=== PATIENT | female | born 1980 | race Caucasian/White ===

== ENCOUNTER 2019-09-01 05:38 | Day surgery (SDC) | payer BC ==
[2019-08-24 16:07] VITALS: BMI 36.1
--- NOTE | 2019-08-31 08:15 | HP ---
REASON FOR ADMISSION: Menorrhagia, dysmenorrhea, adenomyosis, and fibroids. SCHEDULED PROCEDURE: Total laparoscopic hysterectomy, bilateral salpingectomy. HISTORY OF PRESENT ILLNESS: Ms. Dennis is a 39-year-old 1, para 1, status post x1, a long history of dysmenorrhea and menorrhagia. It has been unresponsive to medical management and due to cervical stenosis, we were unable to place IUD in the office. The patient desires definitive surgical management with laparoscopic hysterectomy. 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 Negative Pap in 04/2018. Endometrial biopsy in 2017 was negative. Last ultrasound revealed the uterus measuring about 8 weeks' size with findings consistent with adenomyosis and possible small fibroids. The patient has had 1 previous with 1 living child. The patient has a history of genital herpes outbreaks on occasion. PAST MEDICAL HISTORY: Significant for anxiety, asthma, and depression. PAST SURGICAL HISTORY: , laparoscopies x4. ALLERGIES: DENIES. MEDICATIONS: 1. Indomethacin. 2. Lysteda. 3. Valtrex. SOCIAL HISTORY: Denies tobacco, alcohol, or IV drug abuse. FAMILY HISTORY: Noncontributory. REVIEW OF SYSTEMS: Noncontributory. PHYSICAL EXAMINATION: GENERAL: White female. VITAL SIGNS: 5 feet tall, 175 pounds, BMI 35. Blood pressure 110/62, pulse 95, and respirations 18. HEENT: Within normal limits on auscultation bilaterally. HEART: Regular rate and rhythm. BREASTS: No masses bilaterally. ABDOMEN: Soft, nontender. No rebound or guarding. : Vulva without lesions. Vagina without discharge. Cervix, nulliparous. Uterus, anteverted, 8 weeks' size, tender. Adnexa, no masses. EXTREMITIES: Without clubbing, cyanosis, or edema. IMPRESSION: Long history of menorrhagia and dysmenorrhea with suspected adenomyosis and small fibroids, previous x1. PLAN: Proceed with total laparoscopic hysterectomy, bilateral salpingectomy. The patient understands risks and benefits of procedure including bleeding, infection, and injury to bowel or bladder. We will administer appropriate antibiotic and DVT prophylaxis. Job ID: [id number]
[2019-09-01] MEDS ORDERED: Famotidine/PF 20 mg/2ml Vial ONE (05:52)
[2019-09-01] MEDS ORDERED: CeleCOXIB 100 MG CAP ONE (05:52)
[2019-09-01] MEDS ORDERED: Gabapentin 300 MG CAP ONE (05:52)
[2019-09-01 06:13] LABS: #Basophils 0.1 thou/uL (0.0-0.2); #Eosinphils 0.2 thou/uL (0.0-0.7); #Lymphocytes 3.2 thou/uL (1.20-3.40); #Monocytes 0.7 thou/uL (0.11-0.59); #Neutrophils 5.3 thou/uL (1.40-6.50); %Basophils 1.1 % (0.0-1.0); %Eosinophils 1.9 % (0.0-10.0); %Lymphocytes 33.6 % (21.0-51.0); %Monocytes 7.1 % (0.0-10.0); %Neutrophils 56.3 % (42.0-75.0); Mean Corpuscular HGB CONC 34.2 g/dL (32.0-36.0); Mean Corpuscular Hemoglobin 28.7 pg (27.0-31.0); Mean Corpuscular Volume 83.9 fL (78.0-98.0); Mean Platelet Volume 8.1 fL (7.4-10.4); Platelet Count 250 thou/uL (130-400); RBC Distribution Width 11.8 % (11.5-14.5); Red Blood Cell (RBC) Count 4.52 mill/uL (4.20-5.40); White Blood Cell (WBC) Count 9.5 thou/uL (4.8-10.8)
[2019-09-01] MEDS ORDERED: Fentanyl 100 MCG/2 ML VIAL ONE ×2 (06:23→09:52)
[2019-09-01 06:45] LABS: BHCG - Serum Negative (NEGATIVE); Pregs Control Background? CLEAR/WHITE (CLR/WHITE); Pregs Control Bar Appear? YES (CONTROL BAR)
[2019-09-01] MEDS ORDERED: Bupivacaine PF 0.5% 30 ML VIAL ONE (06:54)
[2019-09-01] MEDS ORDERED: Midazolam HCl 2 mg/2 ml Vial ONE (07:26)
[2019-09-01] MEDS ORDERED: Ondansetron HCl/PF 4 MG/2 ML Vial IVP PRN (08:53)
[2019-09-01] MEDS ORDERED: Promethazine HCl 25 MG/ML VIAL SLOW IVP PRN (08:53)
[2019-09-01] MEDS ORDERED: Promethazine HCl 25 MG/ML VIAL IM PRN ×2 (08:53→09:28)
[2019-09-01] MEDS ORDERED: Clindamycin/D5W 900 mg/50 ml Premix Bag ONE (08:54)
[2019-09-01] MEDS ORDERED: Rocuronium Bromide 10 MG/ML (10ML VIAL) ONE (09:27)
[2019-09-01] MEDS ORDERED: Dexamethasone 20 MG/5 ML VIAL ONE (09:27)
[2019-09-01] MEDS ORDERED: Ondansetron PF 4 MG/2 ML Vial ONE (09:27)
[2019-09-01] MEDS ORDERED: PROPOFOL 200 MG/20 ML VIAL ONE (09:27)
[2019-09-01] MEDS ORDERED: Lidocaine 1% PF 5 ML VIAL ONE (09:27)
[2019-09-01] MEDS ORDERED: Glycopyrrolate 0.2 MG/ML 5 ML SYRINGE ONE (09:27)
[2019-09-01] MEDS ORDERED: Ondansetron PF 4 MG/2 ML Vial IVP PRN (09:28)
[2019-09-01] MEDS ORDERED: HYDROcodone/Acetaminophen 5/325 mg Tablet PO PRN ×2 (09:28)
[2019-09-01] MEDS ORDERED: Bisacodyl 10 MG SUPP PR PRN (09:28)
[2019-09-01] MEDS ORDERED: Zolpidem Tartrate 5 MG TAB PO PRN (09:28)
[2019-09-01] MEDS ORDERED: Morphine 4 MG/ML VIAL SLOW IVP PRN (09:28)
[2019-09-01] MEDS ORDERED: diphenhydrAMINE 25 MG CAP PO PRN (09:28)
--- NOTE | 2019-09-01 11:04 | OP ---
DATE OF PROCEDURE: 09/01/2019 PREOPERATIVE DIAGNOSES: Chronic pelvic pain, dysmenorrhea, menorrhagia, adenomyosis, suspected endometriosis. POSTOPERATIVE DIAGNOSES: Chronic pelvic pain, dysmenorrhea, menorrhagia, adenomyosis with confirmed extensive endometriosis and adhesions. PROCEDURES PERFORMED: Total laparoscopic hysterectomy, extensive lysis of adhesions, bilateral salpingectomy. BUTTONHOLE MAKER HAND: Celia Rosenbaum PA-C ANESTHESIA: Jean Readron CRNA ESTIMATED BLOOD LOSS: Less than 100 mL. DRAINS: Spear to gravity. MEDICATIONS: 1. 2 g Ancef pre-incision. 2. Clindamycin intraoperatively. 3. Second dose of Ancef postoperatively. FINDINGS: 1. 6 to 8 week size uterus consistent with adenomyosis. 2. Extensive retrograde administration. 3. Moderate endometriosis of the pelvis, ovary, anterior and posterior cul-de-sac with dense adhesions of the round ligament and vesicouterine peritoneum to the left side of the patient's anterior uterus, as well as obliteration of the cul-de-sac posteriorly secondary to endometriosis and adhesions. 4. Hemostasis, clear urine. COUNTS: Correct at the end of the procedure. DISPOSITION: Recovery room in good condition. DESCRIPTION OF PROCEDURE: After obtaining appropriate informed consent, the patient was taken to the operating room, where general endotracheal anesthesia was achieved without any difficulty. Prepped and draped in dorsal lithotomy position and positioned in Cirilo stirrups. Sliding speculum was placed the in vagina, as the patient was noted to have significant amount of loose bowel movement on her perineum and that was a decision used to give her the clindamycin and the second dose of Ancef. Secondary povidone vaginal prep was carried out as well to try to remove as much feces as possible. The sliding speculum identified the cervix and grasped with single-toothed tenaculum. 3.5 and an 8 cm MARY ALICE placed without difficulty, and tenaculum and speculum were removed. Spear catheter was placed and mobile equipment operator changed his gloves and turned attention to abdominal portion of the procedure. A 5 mL of Marcaine were injected to superior aspect of the umbilicus. A Veress needle was placed inside the abdominal cavity. Insufflation was carried out with carbon dioxide to max pressure of 15. A 12 mm Ana trocar was placed at superior aspect of the umbilicus and usual da Compa periodontal assistant ports were placed x3. The patient was placed in steep Trendelenburg and fenestrated forceps in the left hand and monopolar scissors on the right. Dense adhesions were noted throughout. These were taken down in a very piecemeal manner, first freeing up the left fallopian tube, coagulating the mesosalpinx and amputating it, and then coagulating the utero-ovarian round, which was almost clearly debrided on the patient's left side and then taken down the vesicouterine peritoneal adhesions as well as could be done. The ureters really could not be seen due to adhesions in the pelvis and the extensive retrograde administration. Attention was turned to the patient's right, where identical procedure was carried out removing the fallopian tube. Utero-ovarian, round, and the broad ligament down the level of the internal cervical os. The vesicouterine peritoneum was incised sharply and dissected off the lower uterine segment, cervix, and upper vagina. Bladder was backfilled several times, identifying it and taken down, making sure to avoid trauma. Skeletonization of the uterine vessels was easily carried out on the patient's right. These were coagulated and transected down the level of the vaginal apex. Mobilization and good dissection from the right were used to work our way back over the left through the area that was a very thickened and gathered up at the level of the cardinal ligaments on the patient's left. These were skeletonized out as best could be done, coagulated, and transected. Once this was done, the uterus and cervix was amputated from the upper vagina using the monopolar scissors starting at 12 to 3 and 12 to 9, and then 6 to 3 and 6 to 9. The specimen was pulled into the vagina to maintain pneumoperitoneum. Vagina was then closed using a running continuous 0 PDS V-Loc suture x2 and again backfilling the bladder to make sure it was away from the closure. Suction and irrigation were carried out. Good hemostasis was noted. Tisseel was applied across all raw surfaces. Bladder was noted to be clear. Instruments were removed. Da Compa undocked. Fascia reapproximated at the umbilicus using a 0 Vicryl on UR5 needle. Skin was reapproximated x4 using 4-0 Monocryl and Dermabond. The specimen was removed from the vagina. Vagina was inspected and noted to be intact and dry without laceration. The patient was awakened, extubated, and taken to recovery room in good condition. Job ID: [id number]
[2019-09-01] MEDS: Ketorolac Tromethamine 30 MG/ML VIAL IVP SCH ×2 (11:52→18:29)
[2019-09-01] MEDS: Sodium Chloride 0.9% 1,000 ML IV SCH ×2 (11:53→22:34)
[2019-09-01] MEDS ORDERED: CEFAZOLIN 2 GM in Premix Bag 1 BAG IVPB SCH ×2 (14:00→15:00)
[2019-09-02] MEDS: Ketorolac Tromethamine 30 MG/ML VIAL IVP SCH (00:19)
[2019-09-02] MEDS: Simethicone Chewable 80 MG TAB PO PRN ×2 (00:24→08:05)
[2019-09-02 05:45] LABS: Hemoglobin 11.3 g/dL (12.0-16.0); Mean Corpuscular Volume 85.3 fL (78.0-98.0); Mean Platelet Volume 7.9 fL (7.4-10.4); Platelet Count 227 thou/uL (130-400); RBC Distribution Width 11.7 % (11.5-14.5); Red Blood Cell (RBC) Count 3.88 mill/uL (4.20-5.40); White Blood Cell (WBC) Count 15.3 thou/uL (4.8-10.8)
[2019-09-02] MEDS ORDERED: Ibuprofen 800 MG TAB PO SCH (06:00)
[2019-09-02] MEDS: Sodium Chloride 0.9% 1,000 ML IV SCH (07:53)
[2019-09-02 08:14] VITALS: BP 122/58; TEMP 98.5
--- NOTE | 2019-09-02 08:21 | DIS ---
DATE OF ADMISSION: 09/01/2019 DATE OF DISCHARGE: 09/02/2019 PRINCIPAL AND HOSPITAL PROCEDURES PERFORMED: Total laparoscopic hysterectomy, bilateral salpingectomy, da Compa robot. SUMMARY OF HOSPITAL COURSE: The patient underwent aforementioned procedure at approximately 0800 hours on 09/01. She had minimal blood loss with the procedure, which experienced extensive endometriosis and adhesions. She received Ancef x2 doses and clindamycin x1 secondary to fecal incontinence with vaginal prep. Secondary prep was carried out after placement of uterine manipulator secondary to this. No gross contamination was noted. Extensive irrigation of the pelvis was carried out posthysterectomy prior to vaginal closure. On postoperative day #1, the patient's hematocrit went from 37% to 33%. Vital signs were stable. She was voiding with ease and passing gas, tolerating p.o. PHYSICAL EXAMINATION: VITAL SIGNS: Temperature 98.9, pulse 90, respirations 16, and blood pressure 127/65. HEENT: Within normal limits. LUNGS: Clear to auscultation bilaterally. HEART: Regular rate and rhythm. ABDOMEN: Soft, nontender. Bowel sounds positive. Incisions intact x4. Perineum dry. EXTREMITIES: Without clubbing, cyanosis, or edema. IMPRESSION: The patient is doing well. Pathology is pending. We will discharge home on [place] and ibuprofen, which were prescribed at [facility] [place] at the preoperative visit. She will be followed up at [facility] in 2 weeks and 6 weeks. Discharge precautions for infection, etc., were given to the patient. Job ID: [id number]
== END 2019-09-02 12:30 | disposition home or self-care (01) ==
LOC: 3SE 05:38 → SDC 05:38 → 3SE 09:27 → ONC 16:35 → SDC 09-02 12:30
PROVIDERS: ATTEND Obstetrics & Gynecology
PROC: 0UT94ZZ Resection of Uterus, Percutaneous Endoscopic Approach (ICD-10-PCS; principal; 2019-09-01)
PROC: 0UT74ZZ Resection of Bilateral Fallopian Tubes, Percutaneous Endoscopic Approach (ICD-10-PCS; principal; 2019-09-01)
DX: N80.0 Endometriosis of uterus (principal); N80.1 Endometriosis of ovary; N80.3 Endometriosis of pelvic peritoneum; N88.2 Stricture and stenosis of cervix uteri; N72 Inflammatory disease of cervix uteri; N83.8 Other noninflammatory disorders of ovary, fallopian tube and broad ligament; J45.909 Unspecified asthma, uncomplicated; F32.9 Major depressive disorder, single episode, unspecified; F41.9 Anxiety disorder, unspecified
CPT/HCPCS: 36415; 84703; 85025; 85027; 86850; 86900; 86901; 88307; J0690; J1100; J1885; J2001; J2250; J2270; J2405; J2704; J3010; J3490; S0020; S0028

== ENCOUNTER 2020-08-23 07:50 | Day surgery (SDC) | payer BC ==
[2020-08-16 15:14] VITALS: BMI 35.3
[2020-08-17 17:13] LABS: Hemoglobin 12.6 g/dL (12.0-16.0); Mean Corpuscular HGB CONC 33.1 G/DL (32.0-36.0); Mean Corpuscular Hemoglobin 29.3 PG (27.0-33.0); Mean Corpuscular Volume 88.6 fl (80.0-100.0); Mean Platelet Volume 11.3 fl (7.4-10.4); Platelet Count 229 10x3/uL (130-400); RBC Distribution Width 12.3 % (11.5-14.5); White Blood Cell (WBC) Count 10.1 10x3/uL (4.5-11.0)
[2020-08-18 02:42] LABS: SARS-CoV-2 MS2 Positive; SARS-CoV-2 N Gene Negative; SARS-CoV-2 S Gene Negative; SARS-CoV-2 by NAA Not Detected (NotDetected); SARS-CoV-2 orf1ab Negative
--- NOTE | 2020-08-22 23:53 | HP ---
REASON FOR ADMISSION: Post hysterectomy vaginal bleeding, suspicious for endometriosis. SCHEDULED PROCEDURE: Laparoscopy with probable bilateral salpingo-oophorectomy, vaginal repair and cystoscopy. HISTORY OF PRESENT ILLNESS: Ms. Dennis is a G1, P1, who underwent a TLH by myself approximately 1 year ago. Approximately 3 months ago, she began having cramping that was cyclic and vaginal bleeding that was dark in nature. Imaging and exam has been nondiagnostic, but seems to be most consistent with ovarian adhesion and endometriosis of the apex of the vagina. Expected management has been unsuccessful in resolving and so decision was made to proceed with surgical management. 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 PAST MEDICAL HISTORY: Obesity. PAST SURGICAL HISTORY: Hysterectomy. ALLERGIES: NONE. MEDICATIONS: None. SOCIAL HISTORY: Denies tobacco, alcohol, or IV drug use. FAMILY HISTORY: Noncontributory. REVIEW OF SYSTEMS: Noncontributory. PHYSICAL EXAMINATION: GENERAL: White female, in no acute distress. VITAL SIGNS: 4 foot 11, 176, BMI 35, blood pressure 118/68, pulse 61, respirations 18. HEENT: Within normal limits, auscultation bilaterally. HEART: Regular rate and rhythm. BREAST: No masses bilaterally. ABDOMEN: Soft, nontender. No rebound or guarding. Small area of bleeding noted in the apex of the vagina. There was dark blood present, but no obvious fistula. EXTREMITIES: No clubbing, cyanosis, or edema. IMAGING: Results have been rather nondiagnostic with this bleeding, but one or two have suggested an ovarian cyst of possible endometriosis with the largest cyst that appeared hemorrhagic being on the right ovary. IMPRESSION: Suspect post hysterectomy, adherent to the apex of the vagina and endometriosis. PLAN: We will proceed with exam under anesthesia, possible vaginal repair, possible cystoscopy and laparoscopic bilateral salpingo-oophorectomy. The patient understands risks, benefits of procedure, bleeding, infection, adhesion, bowel injury, and persistence of bleeding. We will administer appropriate antibiotic and DVT prophylaxis. The patient also understands need for hormone replacement, if ovaries are removed and consents to such. Job ID: [id number]
[2020-08-23] MEDS ORDERED: Gabapentin 300 MG CAP ONE (08:56)
[2020-08-23] MEDS ORDERED: CeleCOXIB 100 MG CAP ONE (08:56)
[2020-08-23] MEDS ORDERED: Famotidine/PF 20 mg/2ml Vial ONE (08:56)
[2020-08-23] MEDS ORDERED: Ondansetron PF 4 MG/2 ML Vial ONE (09:56)
[2020-08-23] MEDS ORDERED: Rocuronium Bromide 10 MG/ML (10ML VIAL) ONE (09:56)
[2020-08-23] MEDS ORDERED: PROPOFOL 200 MG/20 ML VIAL ONE (09:56)
[2020-08-23] MEDS ORDERED: Dexamethasone 20 MG/5 ML VIAL ONE (09:56)
[2020-08-23] MEDS ORDERED: Lidocaine 1% PF 5 ML VIAL ONE (09:56)
[2020-08-23] MEDS ORDERED: Metoclopramide HCl 10 MG/2 ML VIAL ONE (09:56)
[2020-08-23] MEDS ORDERED: Glycopyrrolate 0.2 MG/ML 5 ML SYRINGE ONE (09:56)
[2020-08-23] MEDS ORDERED: Methylene Blue 50 MG/10 ML AMPUL ONE (10:09)
[2020-08-23] MEDS ORDERED: Lidocaine 1% w/Epinephrine 1:100K 20 ML VIAL ONE (10:09)
[2020-08-23] MEDS ORDERED: Bupivacaine 0.25% HCL 30 ML VIAL ONE (10:09)
[2020-08-23] MEDS ORDERED: HYDROmorphone 0.5 MG/0.5 ML SYRINGE ONE (10:10)
[2020-08-23] MEDS ORDERED: Fentanyl 100 MCG/2 ML VIAL ONE (10:10)
[2020-08-23] MEDS ORDERED: Meperidine HCl/PF 25 MG/ML VIAL ONE (11:54)
--- NOTE | 2020-08-23 13:04 | OP ---
DATE OF PROCEDURE: 08/23/2020 PREOPERATIVE DIAGNOSIS: Vaginal bleeding with ovarian cyst on right, suspicious for post-hysterectomy endometriosis of the vaginal cuff. POSTOPERATIVE DIAGNOSIS: Bilateral ovarian endometriomas with endometriosis of the cul-de-sac, vaginal cuff. PROCEDURES PERFORMED: Laparoscopic bilateral oophorectomy with da Compa robot assist, excision of endometriosis, vaginal drainage of endometriosis cyst, and cystourethroscopy. AIRPLANE GASTANK LINER ASSEMBLER: Celia Rosenbaum PA-C. ANESTHESIA: General endotracheal. ESTIMATED BLOOD LOSS: Less than 25 mL. COMPLICATIONS: None. DRAINS: None. Vag packing in situ to be removed 1 hour postoperatively. OPERATIVE FINDINGS: 1. Two bluish cysts at the apex of the vagina consistent with endometriosis drained, unable to excise due to difficult to access posterior location worrisome for placement over the rectum. 2. Normal-appearing bladder with good ureteral efflux of urine bilaterally post bilateral salpingo-oophorectomy. 3. Bilateral ovaries adherent to the level of the apex of the vagina with endometriomas bilaterally. 4. Thin adhesions of the rectosigmoid to ovaries bilaterally, taken down sharply. 5. Small areas of endometriosis in pelvic peritoneum excised or ablated with monopolar cautery. 6. Hemostasis, clear urine. COUNTS: Correct at the end of the procedure. DISPOSITION: Recovery room in good condition. DESCRIPTION OF PROCEDURE: The patient was taken to the operating room. General endotracheal anesthesia achieved without difficulty, prepped and draped in dorsal lithotomy. Sliding speculum was placed in the vagina. Cervix was absent surgically. Cuff was noted to be intact. Two small cystic-looking structures were bluish in nature with some spontaneous drainage of chocolate cyst like fluid was noted. A sponge stick was placed in the vagina. Spear catheter placed and hooked up to a 60 mL syringe. Attention was turned back to the abdomen. The patient's previous laparoscopic ports for hysterectomy were identified. The one at the superior aspect of the umbilicus was infiltrated with 10 mL of lidocaine with epinephrine, incised abdominal cavity. Insufflation was carried out with carbon dioxide for a maximum pressure of 15, volume approximately 2.5 L, and a 12 mm non-cutting Ana balloon trocar was placed. The patient was placed in steep Trendelenburg, and right and left lateral trocars for the da Compa were placed as well as an 11 mm accounting manager assistant controller port in the right upper quadrant. Da Compa was docked with monopolar scissors in the right hand and bipolar fenestrated forceps on the left. Findings as noted in the operative findings were noted. Adhesions were taken down off the ovaries bilaterally. Several small areas of endometriosis were excised from the peritoneum and the pelvis. Cul-de-sac was noted to be obliterated up to the level of the apex of the vagina. A small area of endometriosis at the apex of the vagina, approximately 2-3 mm in greatest diameter was excised and noted to be below the bladder which was backfilled for identification. The ovary on the left was elevated, endometriotic cyst ruptured and suction irrigation carried out. The infundibulopelvic ligament was isolated, coagulated, and transected at the level of the ovary and then the ovaries attachments to the broad ligament to the peritoneal sidewall were coagulated and taken down excising the adnexa. It was placed in the cul-de-sac for retrieval. Attention was turned to the right where identical procedure was carried out. Suction irrigation was carried out, and good hemostasis was noted with some raw areas noted on the peritoneum of the pelvis, status post excision of endometriosis and lysis of adhesions. Tisseel was placed across all these areas and good hemostasis was noted. Retrieval sac was placed in the pelvis, adnexa placed into it and then pulled up against the umbilical 12 mm trocar. The da Compa was undocked. The patient was leveled and the adnexa retrieved through the umbilicus. All trocars were removed. The fascia was reapproximated at the 12 mm umbilical trocar using 0 Vicryl on a UR5 needle. Skin reapproximated x4 using 4-0 Monocryl and Dermabond. The patient's legs were then rotated up. The patient had a very narrow vagina. [place] was identified using retractors, and the 2 bluish cysts were identified. These were noted to be posterior to the apex and felt to be overlying the obliterated cul-de-sac . They were both incised, irrigated with an Asepto, drained, and cauterized on the inside. They were left open to allow for drainage which would be anticipated to be spontaneous and to resolve with removal of ovarian estrogen stimulation as well as anticipated 1-2 year course of Orilissa in the postoperative period. Spear catheter was removed. A cystourethroscopy was carried out which revealed intact bladder, no evidence of injury, and good ureteral efflux of urine bilaterally. Cystoscope was removed. Moistened Kerlix pack was placed in the vagina, was to be removed prior to discharge home this evening. The patient was awakened and extubated. She will be taken to recovery room, and we will follow up with her postoperatively and preauthorize Orilil[place]a for endometriosis. Job ID: [id number]
== END 2020-08-23 13:30 | disposition home or self-care (01) ==
LOC: SDC 07:50
PROVIDERS: ATTEND Obstetrics & Gynecology
PROC: 0UT74ZZ Resection of Bilateral Fallopian Tubes, Percutaneous Endoscopic Approach (ICD-10-PCS; principal; 2020-08-23)
PROC: 0UT24ZZ Resection of Bilateral Ovaries, Percutaneous Endoscopic Approach (ICD-10-PCS; principal; 2020-08-23)
PROC: 0UT Female Reproductive System, Resection (ICD-10-PCS; principal; 2020-08-23)
DX: D27.1 Benign neoplasm of left ovary (principal); D27.0 Benign neoplasm of right ovary; N83.12 Corpus luteum cyst of left ovary; N83.11 Corpus luteum cyst of right ovary; N80.3 Endometriosis of pelvic peritoneum; E66.9 Obesity, unspecified; Z68.35 Body mass index [BMI] 35.0-35.9, adult; Z79.899 Other long term (current) drug therapy
CPT/HCPCS: 85027; 86850; 86900; 86901; 87635; 88305; 88307; J0690; J1100; J1170; J2175; J2405; J2704; J2765; J3010; Q9968; S0020; S0028; U0003